=== PATIENT | male | born 1950 | race Caucasian/White ===

== ENCOUNTER 2018-10-04 09:00 | Inpatient (IN) | payer OTHER ==
[2018-09-24 12:05] VITALS: BMI 28.1
--- NOTE | 2018-10-04 07:53 | HP ---
Admitting History and Physical - Admission Chief Complaint: left knee osteoarthritis x years History of Present Illness: 68 year old male presents in regard to their left knee. Long-standing history of left knee osteoarthritis. Patient complains of pain, limited range of motion , difficulty ambulating, and difficulty with activities of daily living. Patient has failed conservative treatment options including PO medications, injections, activity modification, and exercise programs. At this point, patient would like to proceed with surgical intervention-left total knee arthroplasty, MAKOplasty. 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 - Smoking History Smoking history: Former smoker Have you smoked in the past 12 months: No Aproximately how many cigarettes per day: 20 If you are a former smoker, when did you quit?: 1978 - Alcohol/Substance Use Hx Alcohol Use: No Home Medications - Allergies Allergies/Adverse Reactions: Allergies Allergy/AdvReac Type Severity Reaction Status Date / Time No Known Allergies Allergy Verified 09/24/18 11:47 - Home Medications Home Medications: Ambulatory Orders Magnesium 200 mg PO DAILY 09/24/18 [place]-3 Fatty Acids/Fish Oil [Fish Oil 1,000 mg Capsule] 1 tab PO DAILY Pantoprazole Sodium [Protonix] 40 mg PO DAILY 09/24/18 Vitamin E 1,000 unit PO DAILY 09/24/18 Zinc 50 mg PO DAILY 09/24/18 Review of Systems - Review of Systems Musculoskeletal: reports: Crepitus (left knee), Decreased ROM (left knee), Joint Pain (left knee), Joint Swelling (left knee) Physical Examination Constitutional: Yes: Well Nourished, No Distress Eyes: Yes: Conjunctiva Clear HENT: Yes: Atraumatic, Normocephalic Neck: Yes: Supple Cardiovascular: Yes: Regular Rate and Rhythm Respiratory: Yes: Regular Gastrointestinal: Yes: Soft ...Rectal Exam: Yes: Deferred Musculoskeletal: Yes: Joint Stiffness (left knee), Joint Swelling (left knee) Assessment/Plan 68 year old male presents in regard to their left knee. Long-standing history of left knee osteoarthritis. Patient complains of pain, limited range of motion , difficulty ambulating, and difficulty with activities of daily living. Patient has failed conservative treatment options including PO medications, injections, activity modification, and exercise programs. At this point, patient would like to proceed with surgical intervention-left total knee arthroplasty, MAKOplasty. Pros, cons, risks, benefits, and alternatives of a left total knee arthroplasty, MAKOplasty were discussed with the patient at length. Patient confirms their understanding and consents to proceed with a left total knee arthroplasty, MAKOplasty.
[~2018-10-04 09:00] MED LIST: CEFAZOLIN 2 GM in DEXTROSE 5%-WATER - 50 ML IVPB ONE; CELECOXIB 200 MG CAPSULE PO ONE; GABAPENTIN 300 MG CAPSULE (FP) PO ONE; PANTOPRAZOLE 40 MG TABLET (FP) PO ONE; TRANEXAMIC ACID 1000 MG/10 ML VIAL IVPUSH ONE; oxyCODONE HCL 10 MG SUSTAINED ACTING TABLET PO ONE
[2018-10-04] MEDS ORDERED: SODIUM CHLORIDE 0.9% P/F 10 ML VIAL IJ ONE (12:07)
[2018-10-04] MEDS ORDERED: BUPIVACAINE LIPOSOME/PF (EXPAREL) 266 MG/20 ML VIAL ONE (12:07)
[2018-10-04] MEDS ORDERED: MIDAZOLAM HCL 2 MG/2 ML SINGLE DOSE VIAL ONE ×3 (12:07→15:52)
[2018-10-04] MEDS ORDERED: TRANEXAMIC ACID 1000 MG/10 ML VIAL ONE ×2 (13:26→13:54)
[2018-10-04] MEDS ORDERED: VANCOMYCIN 1,000 MG VIAL (RESTRICTED TO ID ONLY) ONE (13:26)
[2018-10-04] MEDS ORDERED: ceFAZolin SODIUM 1 GM VIAL ONE ×2 (13:26→13:53)
[2018-10-04] MEDS ORDERED: BUPIVACAINE HCL/PF 0.5% (5MG/ML) 10 ML VIAL ONE (13:49)
[2018-10-04] MEDS ORDERED: SUCCINYLCHOLINE CHLORIDE 200 MG/10 ML VIAL ONE (13:50)
[2018-10-04] MEDS ORDERED: ePHEDrine SULFATE 50 MG/1 ML AMPULE ONE (13:50)
[2018-10-04] MEDS ORDERED: ONDANSETRON 4 MG/2 ML VIAL IVPUSH PRN ×2 (15:46→18:12)
[2018-10-04] MEDS ORDERED: oxyCODONE HCL 5 MG TABLET PO PRN ×2 (15:46→22:45)
[2018-10-04] MEDS ORDERED: LACTATED RINGERS SOLUTION 1,000 ML IV SCH ×2 (16:00→18:15)
[2018-10-04] MEDS ORDERED: VANCOMYCIN 1,000 MG VIAL (RESTRICTED TO ID ONLY) IVPB ONE (16:44)
[2018-10-04] MEDS ORDERED: TRANEXAMIC ACID 1000 MG/10 ML VIAL IVPB ONE (16:46)
[2018-10-04] MEDS ORDERED: MAGNESIUM HYDROX 2400MG/30ML ORAL SUSPENSION 30 ML CUP PO PRN (18:12)
[2018-10-04] MEDS ORDERED: MAG HYDROX/AL HYDROX/SIMETH 30 ML UNIT-DOSE CUP PO PRN (18:12)
[2018-10-04] MEDS ORDERED: ACETAMINOPHEN 1000 MG/100 ML VIAL (NON FORMULARY) IVPB ONE (18:15)
[2018-10-04] MEDS ORDERED: KETOROLAC TROMETHAMINE 30 MG/1 ML VIAL ONE (18:22)
[2018-10-04] MEDS ORDERED: traMADol HCL 50 MG TABLET ONE (18:23)
[2018-10-04] MEDS ORDERED: ACETAMINOPHEN INJECTION 100 ML IVPB ONE (18:23)
[2018-10-04] MEDS: KETOROLAC TROMETHAMINE 30 MG/1 ML VIAL IVPUSH SCH ×2 (18:25→23:22)
[2018-10-04] MEDS: traMADol HCL 50 MG TABLET PO SCH ×2 (18:25→23:23)
[2018-10-04] MEDS ORDERED: DEXAMETHASONE SOD PHOSPHATE/PF 10 MG/ML SDV ONE (18:37)
--- NOTE | 2018-10-04 19:37 | OP ---
Operative Note - Note: Operative Date: 10/04/18 Pre-Operative Diagnosis: left knee OA Operation: left ANJU TKA Post-Operative Diagnosis: Same as Pre-op Surgeon: Mynor Garcia Food And Beverage Checker: Crista Hernandez Anesthesia: Spinal Estimated Blood Loss (mls): 200
--- NOTE | 2018-10-04 20:08 | SPEC ---
DATE OF OPERATION: 10/04/2018 PREOPERATIVE DIAGNOSIS: Left knee osteoarthritis. POSTOPERATIVE DIAGNOSIS: Left knee osteoarthritis. PROCEDURE: Left total knee replacement with MAKOplasty robotic navigation. ATTENDING PHYSICIAN: Demi Estrada MD CLINICAL SCIENCES PROFESSOR: WALE Wong ANESTHESIA: Spinal plus sedation. ESTIMATED BLOOD LOSS: 200 mL COMPLICATIONS: None. DISPOSITION: The patient was transferred to the PACU in stable condition. IMPLANTS USED: Wade Triathlon size 6 femoral component, size 5 tibial component, 13-mm total stabilized polyethylene component, 35 mm patellar component. INDICATIONS: This is a 68-year-old male who presents to the office complaining of severe left knee pain. He was seen and examined by Dr. Estrada and diagnosed with severe left knee osteoarthritis. The patient had a history of right knee osteoarthritis and had right knee replacement 9 years ago that was doing well. He was initially treated conservatively with nonoperative treatments, but continued to have severe pain and ambulatory dysfunction. Therefore, he was indicated for a left total knee replacement. The risks, benefits, and alternatives to the procedure were explained to the patient in great detail and he elected to proceed with the surgery. DESCRIPTION OF PROCEDURE: On the day of surgery, the patient was taken to the operating room and placed on the OR table. Spinal anesthesia was administered by the anesthesiologist. The patient was then positioned supine on the table and all bony prominences were padded. The knee was then prepped and draped in the usual sterile fashion and intravenous antibiotics were given for infection prophylaxis. A surgical time-out was then performed with the team, and the patients identity, procedure, side, availability of implants, and the administration of antibiotics was confirmed. With the knee flexed, a midline incision was made and carried down through the subcutaneous fat to the underlying retinaculum. A medial parapatellar arthrotomy was performed. This was followed by a subperiosteal dissection of the tissue off the proximal, medial tibia. A portion of fat pad was removed from under the patellar tendon, and a small portion of fat was excised off the distal supracondylar femur. Electrocautery and an Aquamantys bipolar sealing device were used to achieve hemostasis. The knee was then flexed further and the anterior horn of the lateral meniscus was released from the midline. Next, the anterior and posterior cruciate ligaments were transected. Grade 4 changes were noted diffusely throughout the knee. Femoral and tibial checkpoints were then placed in the appropriate location using a mallet. Two parallel bicortical self-drilling pins were placed in the tibial diaphysis after making stab incisions and bluntly dissecting down to bone. Two pins were then placed in the distal supracondylar femur. The Pace4Life navigation arrays were then attached to both the femoral and tibial pins and the lower extremity was then registered to the robotic navigation device using various joint movements, as well as inputting several dozen reference points. The knee was then taken through a full range of motion with a corrective force applied. Alignment in varus/valgus as well as flexion/extension and soft tissue balance was measured in various positions. The navigation device showed a numerical and graphic representation of the soft tissue balance. The components were repositioned virtually using the software until optimal soft tissue balance was achieved on screen. Once this was accomplished, the final plan was saved and sent to the robot. Self-retaining retractors were then placed at the joint line for exposure and protection of the collateral ligaments. The robot was brought into the sterile field and registered with the navigation device. The robotic arm with attached oscillating saw blade was then used to perform femoral and tibial bone cuts as per the saved software plan. The femoral box cut was made using the appropriately sized manual cutting guide. The knee was then irrigated. Trial components were placed and the knee was taken through a full range of motion to assess soft tissue balance and alignment. The range of motion was found to be excellent and the soft tissue balance was optimal and according to plan. The knee was then put into extension and the patella everted. The synovium around the patella was circumscribed with electrocautery. A caliper was used to measure the patellar thickness and a saw was then used to resect the patella at the chondro-osseous junction. The cut surface was then sized and drilled for the appropriate patellar button, with care taken to medialize it. A trial patella was then placed and the knee was again taken through a full range of motion. The knee was found to have both good balance and good patellar tracking. All of the components were removed except the tibial base plate. The appropriate instrumentation was used to drill and punch the proximal tibia for the keel of the final component. All bony surfaces were then cleaned with pulsatile lavage and dried. Bone cement was then prepared on the back table, and final components were cemented in place in the usual fashion. Extruded cement was removed. The polyethylene trial was placed, the knee was put into extension, and axial pressure was applied for compression while the cement hardened. The patellar button was similarly cemented into place. Once the cement had hardened, the knee was taken through a full range of motion to assess stability, balance, and patellar tracking. This was found to be optimal and the trial polyethylene was exchanged for the appropriately sized real implant. The wound was then thoroughly irrigated with normal saline. A 3-minute dilute Betadine lavage was performed. The knee was again irrigated using a pulsatile lavage device. A periarticular injection was used to locally infiltrate the capsular tissues surrounding the implant and prosthesis. Then No. 1 Polysorb and 0 VLoc 180 barbed sutures were used to close the arthrotomy. Then No. 1 Polysorb and 2-0 VLoc 90 sutures were used in the subcutaneous tissues. Then 4-0 undyed Vicryl and Dermabond skin adhesive was used to close the stab incisions made for the navigation pins. The skin was closed using both 3-0 VLoc 90 suture in a running subcuticular fashion and Dermabond skin adhesive. Once this was completed a sterile Aquacel dressing and compressive Rubin-wrap was applied. The patient was then awakened and taken to the PACU in stable condition. DEMI ESTRADA M.D. [id number]
[2018-10-04] MEDS: CELECOXIB 200 MG CAPSULE PO SCH (21:39)
[2018-10-04] MEDS: SENNOSIDES/DOCUSATE COMBO (SENNA PLUS) TABLET (UD) PO SCH (21:40)
[2018-10-04] MEDS: ASCORBIC ACID 500 MG TABLET (FP) PO SCH (21:40)
[2018-10-04] MEDS: GABAPENTIN 300 MG CAPSULE (FP) PO SCH (21:40)
[2018-10-04] MEDS ORDERED: oxyCODONE HCL 5 MG TABLET PO ONE (23:00)
[2018-10-04] MEDS: oxyCODONE HCL 5 MG TABLET PO PRN (23:00)
[2018-10-04] MEDS ORDERED: diazePAM 5 MG TABLET PO ONE (23:00)
[2018-10-05] MEDS ORDERED: DEXAMETHASONE SOD PHOSPHATE 10 MG/1 ML VIAL IVPB ONE (00:01)
[2018-10-05] MEDS: CEFAZOLIN 2 GM/D5W 2 GM/50 ML ML IVPB SCH ×2 (01:12→09:40)
[2018-10-05] MEDS: oxyCODONE HCL 5 MG TABLET PO PRN ×5 (03:28→21:39)
[2018-10-05] MEDS: traMADol HCL 50 MG TABLET PO SCH ×4 (06:06→23:42)
[2018-10-05] MEDS: KETOROLAC TROMETHAMINE 30 MG/1 ML VIAL IVPUSH SCH ×2 (06:06→13:23)
[2018-10-05 07:40] LABS: HEMATOCRIT 42.2 % (35.4-49); HEMOGLOBIN 13.7 GM/dl (11.7-16.9); MCH 33.2 pg (25.7-33.7); MCHC 32.5 g/dl (32.0-35.9); MEAN CELL VOLUME 101.9 fl (80-96); MEAN PLT VOLUME 8.1 fl (7.5-11.1); PLATELET COUNT 138 K/MM3 (134-434); RBC 4.14 M/mm3 (4.00-5.60); RDW 13.1 % (11.9-15.9); WHITE BLOOD COUNT 5.6 K/mm3 (4.0-10.8)
[2018-10-05 07:43] LABS: CALCIUM 8.5 mg/dl (8.5-10); CREATININE 0.9 mg/dl (0.55-1.3); POTASSIUM 4.3 mmol/L (3.5-5.1)
--- NOTE | 2018-10-05 08:59 | PN ---
Progress Note (short form) - Note Progress Note: ANESTHESIA POSTOP 68 YO MALE POD#1 s/p TKA, spinal anesthesia, nerve block patient sitting in chair, appears comfortable, socially interacting with guests , pain mostly mid-thigh VSS, Afebrile Patient doing well. Encouraged active participation in PT and use of IS. No anesthetic complications
[2018-10-05] MEDS: GABAPENTIN 300 MG CAPSULE (FP) PO SCH ×2 (09:30→21:46)
[2018-10-05] MEDS: SENNOSIDES/DOCUSATE COMBO (SENNA PLUS) TABLET (UD) PO SCH ×2 (09:30→22:38)
[2018-10-05] MEDS: MULTIVITAMINS (DAILY MVI) TABLET (FP) PO SCH (09:30)
[2018-10-05] MEDS: ASPIRIN 325 MG TABLET PO SCH (09:30)
[2018-10-05] MEDS: CELECOXIB 200 MG CAPSULE PO SCH ×2 (09:30→21:46)
[2018-10-05] MEDS: ASCORBIC ACID 500 MG TABLET (FP) PO SCH ×2 (09:31→21:46)
[2018-10-05] MEDS: PANTOPRAZOLE 40 MG TABLET (FP) PO SCH (09:38)
[2018-10-05] MEDS ORDERED: PANTOPRAZOLE 40 MG TABLET (FP) PO SCH (10:00)
--- NOTE | 2018-10-06 01:03 | PN ---
Progress Note (short form) - Note Progress Note: Pt seen and examined. Doing well. AVSS Selected Entries 10/05/18 10/05/18 10/06/18 20:00 20:18 00:00 Temperature 97.9 F 98.8 F Pulse Rate 72 91 H Respiratory 18 18 Rate Blood Pressure 111/68 114/59 L O2 Sat by Pulse 96 95 Oximetry (%) Oxygen Delivery Room Air Room Air Method Laboratory Tests 10/05/18 10/05/18 07:14 07:14 WBC 5.6 Hgb 13.7 Hct 42.2 Plt Count 138 Sodium 135 L Potassium 4.3 Chloride 104 Carbon Dioxide 24 Anion Gap 7 L BUN 17 Creatinine 0.9 Est GFR (CKD-EPI)AfAm 101.36 Est GFR (CKD-EPI)NonAf 87.45 Random Glucose 150 H Calcium 8.5 Gen: NAD LLE: c/d/i, NVID A/P 68yo male POD#1 s/p L TKA PT/OOB D/C home in AM
[2018-10-06] MEDS: oxyCODONE HCL 5 MG TABLET PO PRN (01:35)
--- NOTE | 2018-10-06 01:43 | DS ---
Physical Examination Vital Signs: Vital Signs Temperature 98.8 F 10/06/18 00:00 Pulse Rate 91 H 10/06/18 00:00 Respiratory Rate 18 10/06/18 00:00 Blood Pressure 114/59 L 10/06/18 00:00 O2 Sat by Pulse Oximetry (%) 95 10/06/18 00:00 Labs: CBC, BMP 10/05/18 07:14 10/05/18 07:14 Discharge Summary Reason For Visit: LEFT KNEE OSTEOARTHRITIS Current Active Problems Primary osteoarthritis of left knee (Acute) Procedures: Principal: tka Hospital Course: Admitted for elective surgery. Procedure performed without complications. Pt received postoperative antibiotic prophylaxis and DVT ppx. Ambulated with physical therapy. Stable for discharge home with outpatient followup. Condition: Stable - Instructions Diet, Activity, Other Instructions: Dr. Garcia - Knee Replacement Instructions Keep the Aquacel dressing on until removed by Dr. Garcia in 10-14 days - it is antibacterial and waterproof and you can shower with it on. Call the office for a follow-up appointment with Dr. Garcia in 10-14 days. Take one Aspirin 325mg daily for 6 weeks to prevent blood clots in your legs. Take one Pantoprazole 40mg daily for 6 weeks to protect against heartburn and ulcers. Take Cephalexin (antibiotic) 3x/day for 10 days to help prevent skin infection. Take Celebrex 200mg twice daily for 30 days to reduce swelling and inflammation. Take a multivitamin, stool softener, and extra Vitamin C supplement daily. For pain: *Mild pain (1-3/10): Take 1 Tramadol tablet every 3 hours as needed. Moderate/Severe pain (4-10/10): Take 1 Tramadol tablet and 1 Percocet tablet every 3 hours as needed. Activity: You can put as much weight on the operative leg as you want. Right after you get home, there will be a physical therapist coming to your house to help you walk around and bend/straighten your knee. After your follow-up appointment, you will be sent for more intensive outpatient physical therapy which will include machines and equipment that the home therapist cannot bring to your house. Always use a walker or cane for balance and to prevent falls. Expect to see redness/warmth/swelling/bruising from your thigh all the way down to your toes. Wear the compression stocking on the operative side during the day to minimize how much swelling there is in your foot/ankle. Don't wear the stocking at night. You don't have to wear a stocking on the other side. Disposition: [facility]/HOME HEALTH CARE - Home Medications Comprehensive Discharge Medication List: Ambulatory Orders Magnesium 200 mg PO DAILY 09/24/18 [place]-3 Fatty Acids/Fish Oil [Fish Oil 1,000 mg Capsule] 1 tab PO DAILY Pantoprazole Sodium [Protonix] 40 mg PO DAILY 09/24/18 Vitamin E 1,000 unit PO DAILY 09/24/18 Zinc 50 mg PO DAILY 09/24/18 Ascorbic Acid [Vitamin C -] 500 mg PO BID tablet 10/06/18 Aspirin [ASA -] 325 mg PO DAILY@0800 tablet 10/06/18 Celecoxib [CeleBREX -] 200 mg PO BID #60 capsule 10/06/18 Cephalexin Monohydrate [Keflex -] 500 mg PO TID #30 capsule 10/06/18 Multivitamins [Multivit ([facility] Formulary)] 1 tab PO DAILY tab 10/06/18 Oxycodone HCl/Acetaminophen [Oxycodone-Acetaminophen 10-325] 1 tab PO Q3H PRN # 60 tablet MDD 8 10/06/18 Pantoprazole Sodium [Protonix -] 40 mg PO DAILY #40 tablet.ec 10/06/18 Sennosides/Docusate Sodium [Pericolace -] 1 tablet PO BID tablet 10/06/18 traMADol HCL [Ultram -] 50 mg PO Q4H PRN #60 tablet MDD 6 10/06/18
[2018-10-06] MEDS: traMADol HCL 50 MG TABLET PO SCH ×2 (05:34→11:32)
[2018-10-06 07:08] VITALS: BP 98/66; PULSE 80; TEMP 98.4
[2018-10-06 09:55] LABS: HEMATOCRIT 35.3 % (35.4-49); HEMOGLOBIN 11.9 GM/dL (11.7-16.9); MCH 34.5 pg (25.7-33.7); MCHC 33.7 g/dl (32.0-35.9); MEAN CELL VOLUME 102.6 fl (80-96); MEAN PLT VOLUME 8.7 fl (7.5-11.1); PLATELET COUNT 107 K/MM3 (134-434); RBC 3.44 M/mm3 (4.00-5.60); RDW 13.7 % (11.9-15.9)
[2018-10-06] MEDS: ASPIRIN 325 MG TABLET PO SCH (10:00)
[2018-10-06] MEDS: GABAPENTIN 300 MG CAPSULE (FP) PO SCH (10:00)
[2018-10-06] MEDS: CELECOXIB 200 MG CAPSULE PO SCH (10:00)
[2018-10-06] MEDS: PANTOPRAZOLE 40 MG TABLET (FP) PO SCH (10:00)
[2018-10-06] MEDS: ASCORBIC ACID 500 MG TABLET (FP) PO SCH (10:00)
[2018-10-06] MEDS: MULTIVITAMINS (DAILY MVI) TABLET (FP) PO SCH (10:00)
[2018-10-06] MEDS: SENNOSIDES/DOCUSATE COMBO (SENNA PLUS) TABLET (UD) PO SCH (10:00)
--- NOTE | 2018-10-08 17:49 | PATH ---
Surgical Pathology Report Patient Name: CHELSEA VALLECILLO Med. Rec. #: [id number] /Age/Gender: 1950 (Age: 68) / M Account: [id number] Location: [facility] MED-SURG Taken: 10/04/2018 Received: 10/04/2018 Reported: 10/08/2018 Physicians: Mynor Garcia M.D. Specimen(s) Received LEFT KNEE BONE Clinical History Left knee osteoarthritis Final Diagnosis BONE, KNEE, LEFT, TOTAL KNEE REPLACEMENT: BONE WITH DEGENERATIVE JOINT DISEASE. Electronically Signed Jinny Morrison M.D. Gross Description Received in formalin labeled "left knee bone," is an 11.5 x 9.5 x 1.7 cm aggregate of multiple irregular portions of bone and soft tissue. The tibial plateau measures 8.0 x 5.4 x 1.6 cm. There are multiple areas of eburnation present, measuring up to 4.0 cm in greatest dimension. The underlying trabecular bone is yellow and hard. Repeater Chief sections are submitted in one cassette, following decalcification. 10/05/2018 [facility]10/05/2018
== END 2018-10-06 12:50 | disposition home health service (06) | DRG 470 ==
LOC: FM/S 09:33
PROVIDERS: ADMIT Student in an Organized Health Care Education/Training Program; ATTEND Student in an Organized Health Care Education/Training Program
PROC: 8E0X0CZ Robotic Assisted Procedure of Upper Extremity, Open Approach (ICD-10-PCS; 2018-10-04)
PROC: 0SRD0J9 Replacement of Left Knee Joint with Synthetic Substitute, Cemented, Open Approach (ICD-10-PCS; principal; 2018-10-04 14:35)
DX: M17.12 Unilateral primary osteoarthritis, left knee (principal); K21.9 Gastro-esophageal reflux disease without esophagitis; G62.9 Polyneuropathy, unspecified; Z87.891 Personal history of nicotine dependence
CPT/HCPCS: 36415; 73560-TC-LT-FY; 80048; 85027; 88304-TC; 88311-TC; 94760; 97116-GP; 97163-GP; J0131; J1100

== ENCOUNTER 2018-10-06 17:47 | Inpatient (IN) | payer OTHER ==
[2018-10-06] MEDS ORDERED: SODIUM CHLORIDE 1,000 ML IV STA (18:30)
--- NOTE | 2018-10-06 18:54 | PDOC ---
Documentation entered by Shun Mtz SCRIBE, acting as scribe for Pino Mckeon MD. Pino Mckeon MD: This documentation has been prepared by the Smith green Daniel, SCRIBE, under my direction and personally reviewed by me in its entirety. I confirm that the documentation accurately reflects all work, treatment, procedures, and medical decision making performed by me. History of Present Illness - General Chief Complaint: Revisit,Wound Recheck Stated Complaint: BLEEDING FROM TKR WOUND History Source: Patient Exam Limitations: No Limitations - History of Present Illness Initial Comments: 10/06/18 18:39 The patient is a 68 year old male with a past medical history of left total knee replacement here today for evaluation of left knee pain. The patient reports that he had a left total knee replacement on 10/04/18. He reports that he was on his way home from the hospital today, when he was getting out a cab his left knee buckled and he began to fall. He states that he was able to hold himself up and prevent falling. However, the left knee wound started bleeding actively after this event. He immediately return to the emergency department. Patient denies headache, lightheadedness. Denies fever, chills. Denies chest pain, shortness of breath. Denies nausea, vomiting, diarrhea, abdominal pain. Allergies: NKA Orthopedist: Mynor Garcia Past History - Past Medical History Allergies/Adverse Reactions: Allergies Allergy/AdvReac Type Severity Reaction Status Date / Time No Known Allergies Allergy Verified 09/24/18 11:47 Home Medications: Ambulatory Orders Magnesium 200 mg PO DAILY 09/24/18 [place]-3 Fatty Acids/Fish Oil [Fish Oil 1,000 mg Capsule] 1 tab PO DAILY Vitamin E 1,000 unit PO DAILY 09/24/18 Zinc 50 mg PO DAILY 09/24/18 Ascorbic Acid [Vitamin C -] 500 mg PO BID tablet 10/06/18 Aspirin [ASA -] 325 mg PO DAILY@0800 tablet 10/06/18 Celecoxib [CeleBREX -] 200 mg PO BID #60 capsule 10/06/18 Cephalexin Monohydrate [Keflex -] 500 mg PO TID #30 capsule 10/06/18 Multivitamins [Multivit ([facility] Formulary)] 1 tab PO DAILY tab 10/06/18 Oxycodone HCl/Acetaminophen [Oxycodone-Acetaminophen 10-325] 1 tab PO Q3H PRN # 60 tablet MDD 8 10/06/18 Pantoprazole Sodium [Protonix -] 40 mg PO DAILY #40 tablet.ec 10/06/18 Sennosides/Docusate Sodium [Pericolace -] 1 tablet PO BID tablet 10/06/18 traMADol HCL [Ultram -] 50 mg PO Q4H PRN #60 tablet MDD 6 10/06/18 Anemia: No Asthma: No Cancer: Yes (PROSTATE) Cardiac Disorders: No CVA: No COPD: No CHF: No Dementia: No Diabetes: No GI Disorders: Yes (REFLUX, GASTRIC ULCER,PUD) Disorders: No HTN: No Hypercholesterolemia: Yes (DIET CONTROLLED) Liver Disease: No Seizures: No Thyroid Disease: No - Surgical History Abdominal Surgery: Yes (PARTIAL GASTRECTOMY) Appendectomy: No Cardiac Surgery: No Cholecystectomy: No Lung Surgery: No Neurologic Surgery: No Orthopedic Surgery: Yes (RIGHT TOTAL KNEE REPLACEMENT- 2008) - Suicide/Smoking/Psychosocial Hx Smoking Status: No Smoking History: Former smoker Have you smoked in the past 12 months: No Number of Cigarettes Smoked Daily: 20 If you are a former smoker, when did you quit?: 1978 Hx Alcohol Use: No Drug/Substance Use Hx: No Substance Use Type: None Hx Substance Use Treatment: No Review of Systems - Review of Systems Able to Perform ROS?: Yes Comments:: 10/06/18 18:40 CONSTITUTIONAL: Absent: Fever, Chills, Diaphoresis, Generalized Weakness, Malaise, Loss of Appetite HEENT: Absent: Rhinorrhea, Nasal Congestion, Throat Pain, Throat Swelling, Difficulty Swallowing, Mouth Swelling, Ear Pain, Eye Pain, Visual Changes CARDIOVASCULAR: Absent: Chest Pain, Syncope, Palpitations, Irregular Heart Rate, Lightheadedness , Peripheral Edema RESPIRATORY: Absent: Cough, Shortness of Breath, SOB with Exertion, Orthopnea, Wheezing, Stridor, Hemoptysis GASTROINTESTINAL: Absent: Abdominal pain, Abdominal Distension, Nausea, Vomiting, Diarrhea, Constipation, Melena, Hematochezia GENITOURINARY: Absent: Dysuria, Frequency, Urgency, Hesitancy, Flank Pain, Genital Pain MUSCULOSKELETAL: +left knee pain Absent: Back pain, Neck Pain SKIN: Absent: Rash, Itching, Pallor HEMEATOLOGIC/IMMUNOLOGIC: Absent: Easy Bleeding, Easy Bruising, Lymphadenopathy, Frequent infections ENDOCRINE: Absent: Unexplained Weight Gain, Unexplained Weight Loss, Heat Intolerance, Cold Intolerance NEUROLOGIC: Absent: Headache, Focal Weakness, Paresthesias, Vertigo, Lightheadedness, Unsteady Gait, Seizure, Mental Status Changes, Incontinence PSYCHIATRIC: Absent: Anxiety, Depression *Physical Exam - Vital Signs Last Vital Signs Temp Pulse Resp BP Pulse Ox 98.3 F 84 18 108/71 100 10/06/18 17:50 10/06/18 17:50 10/06/18 17:50 10/06/18 17:50 10/06/18 17:50 - Physical Exam Comments: 10/06/18 18:43 GENERAL: The patient is awake, alert, and fully oriented, in no acute distress. HEAD: Normal with no signs of trauma. EYES: Pupils equal, round and reactive to light, extraocular movements intact, sclera anicteric, conjunctiva clear. EXTREMITIES: The left knee dressing remains in place from the surgery, however, the dressing is bulging out from contained blood under the dressing. The dressing was removed revealing complete dehiscence of the left anterior surgical wound from the TKR. Bleeding was controlled with gauze dressings and combine dressings and an Rubin bandage was applied. NEUROLOGICAL: Normal speech, normal gait. PSYCH: Normal mood, normal affect. SKIN: Warm, Dry, normal turgor, no rashes or lesions noted. ED Treatment Course - LABORATORY CBC & Chemistry Diagram: 10/06/18 18:40 10/06/18 18:40 - RADIOLOGY Radiology Studies Ordered: Category Date Time Status KNEE 2 POS-LEFT [RAD] Stat Radiology 10/06/18 18:30 Ordered Medical Decision Making - Medical Decision Making 10/06/18 18:31 Dr. Mynor kaplan awaiting call back. 10/06/18 18:41 Dr. Garcia's PA, their team recommends antibiotics and admission to [facility]. 10/06/18 19:11 Patient is a 68-year-old man with a history of prior right total knee replacement many years ago. He had his left knee replacement done in the hospital here a couple of days ago. He was on his way home from the hospital today when he had a buckling of his left knee while getting out of the taxi. He did not fall or injure himself, however, the left knee started bleeding. He immediately return to the emergency department. On examination, there is complete wound dehiscence of the anterior left knee wound. There is a moderate amount of bleeding. Bleeding was easily controlled with gauze, combine dressings, and an elastic bandage. Dr. Domingo Garcia, his orthopedic surgeon, was immediately contacted. His PA responded and advised admission to the hospital with prophylactic antibiotics. They requested admission on the hospitalist service and they will act as supply chain consultant's. They are planning to take the patient back to the OR for a washout and closure. Hospitalist service has been paged. *DC/Admit/Observation/Transfer Diagnosis at time of Disposition: Wound dehiscence - Discharge Dispostion Condition at time of disposition: Stable Decision to Admit order: Yes - Referrals Referrals: Mynor Garcia MD [Primary Care Provider] - - Patient Instructions - Post Discharge Activity
[2018-10-06 19:16] LABS: ALBUMIN 3.3 g/dl (3.4-5.0); BILIRUBIN,TOTAL 1.2 mg/dl (0.2-1); CALCIUM 8.2 mg/dl (8.5-10); CREATININE 1.1 mg/dl (0.55-1.3); POTASSIUM 4.9 mmol/L (3.5-5.1); TOT PROT 6.1 g/dl (6.4-8.2)
[2018-10-06 19:24] LABS: ACTIVATED PTT 25.4 SECONDS (25.2-36.5)
[2018-10-06 19:28] LABS: INR 1.15 (0.82-1.09); PROTHROMBIN TIME (PATIENT) 12.6 SEC (10.2-13.0)
[2018-10-06] MEDS ORDERED: ceFAZolin 2 GRAM PREMIX BAG IVPB STA (19:29)
[2018-10-06] MEDS ORDERED: ceFAZolin SODIUM 1 GM VIAL ONE (19:33)
[2018-10-06] MEDS ORDERED: morphine CARPU-JECT 2 MG/1 ML DISP.SYRIN IVPUSH ONE (19:42)
[2018-10-06] MEDS ORDERED: morphine SULFATE 4 MG/ML VIAL ONE (19:52)
[2018-10-06 20:40] LABS: BASO % 0.1 % (0-2.0); EOS % 0.1 % (0-4.5); HEMATOCRIT 36.7 % (35.4-49); HEMOGLOBIN 12.3 GM/dL (11.7-16.9); LYMPH % 8.5 % (8-40); MCH 34.3 pg (25.7-33.7); MCHC 33.4 g/dl (32.0-35.9); MEAN CELL VOLUME 102.5 fl (80-96); MEAN PLT VOLUME 9.1 fl (7.5-11.1); MONO % 10.8 % (3.8-10.2); NEUT % 80.5 % (42.8-82.8); PLATELET COUNT 114 K/MM3 (134-434); RBC 3.58 M/mm3 (4.00-5.60); RDW 14.2 % (11.9-15.9); WHITE BLOOD COUNT 8.5 K/mm3 (4.0-10.0)
[2018-10-06 21:02] VITALS: BMI 27.9
--- NOTE | 2018-10-06 21:30 | HP ---
CHIEF COMPLAINT: left knee wound dehiscence PCP: Orthopedist: Mynor Garcia HISTORY OF PRESENT ILLNESS: 68 year old male s/p left TKR 10/06, d/c from hospital and on his way home from the hospital when he was getting out a cab his left knee buckled and he began to fall. Subsequently went to ER. Pt's surgeon- Dr. Garcia was contacted. ER course was notable for: (1) knee xray (2) cefazolin (3) Recent Travel:no PAST MEDICAL HISTORY: left total knee replacement one day ago PAST SURGICAL HISTORY: left TKR - 10/04, right TKR Social History: Smoking: former smoker Alcohol: no Drugs: no Family History: none Allergies No Known Allergies Allergy (Verified 09/24/18 11:47) HOME MEDICATIONS: Home Medications Medication Instructions Recorded Magnesium 200 mg PO DAILY 09/24/18 [place]-3 Fatty Acids/Fish Oil [Fish 1 tab PO DAILY 09/24/18 Oil 1,000 mg Capsule] Vitamin E 1,000 unit PO DAILY 09/24/18 Zinc 50 mg PO DAILY 09/24/18 Ascorbic Acid [Vitamin C -] 500 mg PO BID tablet 10/06/18 Aspirin [ASA -] 325 mg PO DAILY@0800 tablet 10/06/18 Celecoxib [CeleBREX -] 200 mg PO BID #60 capsule 10/06/18 Cephalexin Monohydrate [Keflex -] 500 mg PO TID #30 capsule 10/06/18 Multivitamins [Multivit ([facility] 1 tab PO DAILY tab 10/06/18 Formulary)] Oxycodone HCl/Acetaminophen 1 tab PO Q3H PRN #60 tablet MDD 8 10/06/18 [Oxycodone-Acetaminophen 10-325] Pantoprazole Sodium [Protonix -] 40 mg PO DAILY #40 tablet.ec 10/06/18 Sennosides/Docusate Sodium 1 tablet PO BID tablet 10/06/18 [Pericolace -] traMADol HCL [Ultram -] 50 mg PO Q4H PRN #60 tablet MDD 6 10/06/18 REVIEW OF SYSTEMS CONSTITUTIONAL: Absent: fever, chills, diaphoresis, generalized weakness, malaise, loss of appetite, weight change HEENT: Absent: rhinorrhea, nasal congestion, throat pain, throat swelling, difficulty swallowing, mouth swelling, ear pain, eye pain, visual changes CARDIOVASCULAR: Absent: chest pain, syncope, palpitations, irregular heart rate, lightheadedness , peripheral edema RESPIRATORY: Absent: cough, shortness of breath, dyspnea with exertion, orthopnea, wheezing, stridor, hemoptysis GASTROINTESTINAL: Absent: abdominal pain, abdominal distension, nausea, vomiting, diarrhea, constipation, melena, hematochezia GENITOURINARY: Absent: dysuria, frequency, urgency, hesitancy, hematuria, flank pain, genital pain MUSCULOSKELETAL: Absent: back pain, neck pain present- myalgia, arthralgia ,joint swelling, SKIN: Absent: rash, itching, pallor HEMATOLOGIC/IMMUNOLOGIC: Absent: easy bleeding, easy bruising, lymphadenopathy, frequent infections ENDOCRINE: Absent: unexplained weight gain, unexplained weight loss, heat intolerance, cold intolerance NEUROLOGIC: Absent: headache, focal weakness or paresthesias, dizziness, unsteady gait, seizure, mental status changes, bladder or bowel incontinence PSYCHIATRIC: Absent: anxiety, depression, suicidal or homicidal ideation, hallucinations. PHYSICAL EXAMINATION Vital Signs - 24 hr 10/06/18 10/06/18 17:50 20:42 Temperature 98.3 F 99.0 F Pulse Rate 84 93 H Respiratory 18 18 Rate Blood Pressure 108/71 112/70 O2 Sat by Pulse 100 97 Oximetry (%) GENERAL: Awake, alert, and fully oriented, in no acute distress. HEAD: Normal with no signs of trauma. EYES: Pupils equal, round and reactive to light, extraocular movements intact, sclera anicteric, conjunctiva clear. No lid lag. EARS, NOSE, THROAT: Ears normal, nares patent, oropharynx clear without exudates. Moist mucous membranes. NECK: Normal range of motion, supple without lymphadenopathy, JVD, or masses. LUNGS: Breath sounds equal, clear to auscultation bilaterally. No wheezes, and no crackles. No accessory muscle use. HEART: Regular rate and rhythm, normal S1 and S2 without murmur, rub or gallop. ABDOMEN: Soft, nontender, not distended, normoactive bowel sounds, no guarding, no rebound, no masses. MUSCULOSKELETAL: Normal range of motion at all joints. No bony deformities or tenderness. No CVA tenderness. UPPER EXTREMITIES: 2+ pulses, warm, well-perfused. No cyanosis. No clubbing. No peripheral edema. LOWER EXTREMITIES: right knee scar, left knee wound dehiscence, s/p TKR, in bandage NEUROLOGICAL: Cranial nerves II-XII intact. Normal speech. PSYCHIATRIC: Cooperative. Good eye contact. Appropriate mood and affect. SKIN: Warm, dry, normal turgor, no rashes or lesions noted, normal capillary refill. Laboratory Results - last 24 hr 10/06/18 10/06/18 10/06/18 18:40 18:40 18:40 WBC 8.5 RBC 3.58 L Hgb 12.3 Hct 36.7 MCV 102.5 H MCH 34.3 H MCHC 33.4 RDW 14.2 Plt Count 114 L MPV 9.1 Absolute Neuts (auto) 6.9 Neutrophils % 80.5 Lymphocytes % 8.5 D Monocytes % 10.8 H Eosinophils % 0.1 Basophils % 0.1 Nucleated RBC % 0 PT with INR 12.6 INR 1.15 PTT (Actin FS) 25.4 Sodium 137 Potassium 4.9 Chloride 104 Carbon Dioxide 25 Anion Gap 8 BUN 25 H Creatinine 1.1 Est GFR (CKD-EPI)AfAm 79.52 Est GFR (CKD-EPI)NonAf 68.61 Random Glucose 128 H Calcium 8.2 L Total Bilirubin 1.2 H AST 37 ALT 15 Alkaline Phosphatase 79 Total Protein 6.1 L Albumin 3.3 L Blood Type Antibody Screen 10/06/18 18:40 WBC RBC Hgb Hct MCV MCH MCHC RDW Plt Count MPV Absolute Neuts (auto) Neutrophils % Lymphocytes % Monocytes % Eosinophils % Basophils % Nucleated RBC % PT with INR INR PTT (Actin FS) Sodium Potassium Chloride Carbon Dioxide Anion Gap BUN Creatinine Est GFR (CKD-EPI)AfAm Est GFR (CKD-EPI)NonAf Random Glucose Calcium Total Bilirubin AST ALT Alkaline Phosphatase Total Protein Albumin Blood Type O POSITIVE Antibody Screen Negative imaging reviewed ASSESSMENT/PLAN: #68yo man w/ left TKR 10/04, post op day 2, s/p left knee wound dehiscence after traumatic fall. No evidence of of injuries on physical exam. Dr. Mynor Garcia contacted and aware. -admit tot med/surg -bed rest -fall precautions -morphine 30mg po sr with 2mg IVP for breakthrough -wound care -nursing -frequent dressing changes -diet for now -ortho consult- Dr. Garcia -cefazolin 1g IV q8hrs for prophylaxis -heparin sc for dvt ppx- moderate to high risk for dvt- s/p orthopedic surgery and bedbound #GERD -protonix Visit type - Emergency Visit Emergency Visit: Yes ED Registration Date: 10/06/18 Care time: The patient presented to the Emergency Department on the above date and was hospitalized for further evaluation of their emergent condition. - New Patient This patient is new to me today: Yes Date on this admission: 10/06/18 - Critical Care Critical Care patient: No
[2018-10-06] MEDS: morphine CARPU-JECT 2 MG/1 ML DISP.SYRIN IVPUSH PRN (23:55)
[2018-10-06] MEDS: morphine SO4 SUSTAINED ACTING 30 MG TABLET.SA PO SCH (23:56)
[2018-10-06] MEDS: HEPARIN NA (PORCINE) 5,000 UNITS/ML 1ML VIAL SQ SCH (23:57)
[2018-10-07] MEDS: CEFAZOLIN 1 GM/D5W 1 GM/50 ML BAG IVPB SCH ×3 (02:20→17:14)
[2018-10-07 09:15] LABS: CALCIUM 7.9 mg/dl (8.5-10); CREATININE 0.9 mg/dl (0.55-1.3); POTASSIUM 4.2 mmol/L (3.5-5.1)
[2018-10-07] MEDS ORDERED: PANTOPRAZOLE 40 MG TABLET (FP) PO SCH (10:00)
[2018-10-07] MEDS ORDERED: MULTIVITAMINS (DAILY MVI) TABLET (FP) PO SCH (10:00)
[2018-10-07 10:17] LABS: HEMATOCRIT 33.6 % (35.4-49); HEMOGLOBIN 11.3 GM/dL (11.7-16.9); MCH 34.2 pg (25.7-33.7); MCHC 33.5 g/dl (32.0-35.9); PLATELET COUNT 112 K/MM3 (134-434); RDW 13.8 % (11.9-15.9); WHITE BLOOD COUNT 6.7 K/mm3 (4.0-10.0)
[2018-10-07] MEDS: morphine SO4 SUSTAINED ACTING 30 MG TABLET.SA PO SCH ×2 (10:42→21:39)
--- NOTE | 2018-10-07 10:42 | PN ---
Physical Exam: SUBJECTIVE: Patient seen and examined, pt s/o pain in left leg, old bloody drainage noted from dressing OBJECTIVE: Vital Signs Period Temp Pulse Resp BP Sys/Early Pulse Ox Last 24 Hr 98.3 F-99.3 F 84-93 18-18 102-112/61-71 97-100 GENERAL: The patient is awake, alert, and fully oriented, in no acute distress. HEAD: Normal with no signs of trauma. EYES: PERRL, extraocular movements intact, sclera anicteric, conjunctiva clear. No ptosis. ENT: Ears normal, nares patent, oropharynx clear without exudates, moist mucous membranes. NECK: Trachea midline, full range of motion, supple. LUNGS: Breath sounds equal, clear to auscultation bilaterally, no wheezes, no crackles, no accessory muscle use. HEART: Regular rate and rhythm, S1, S2 without murmur, rub or gallop. ABDOMEN: Soft, nontender, nondistended, normoactive bowel sounds, no guarding, no rebound, no hepatosplenomegaly, no masses. EXTREMITIES: 2+ pulses, warm, well-perfused, no edema. NEUROLOGICAL: Cranial nerves II through XII grossly intact. Normal speech, gait not observed. PSYCH: Normal mood, normal affect. SKIN: Warm, dry, normal turgor, no rashes or lesions noted Laboratory Results - last 24 hr 10/06/18 10/06/18 10/06/18 18:40 18:40 18:40 WBC 8.5 RBC 3.58 L Hgb 12.3 Hct 36.7 MCV 102.5 H MCH 34.3 H MCHC 33.4 RDW 14.2 Plt Count 114 L MPV 9.1 Absolute Neuts (auto) 6.9 Neutrophils % 80.5 Lymphocytes % 8.5 D Monocytes % 10.8 H Eosinophils % 0.1 Basophils % 0.1 Nucleated RBC % 0 PT with INR 12.6 INR 1.15 PTT (Actin FS) 25.4 Sodium 137 Potassium 4.9 Chloride 104 Carbon Dioxide 25 Anion Gap 8 BUN 25 H Creatinine 1.1 Est GFR (CKD-EPI)AfAm 79.52 Est GFR (CKD-EPI)NonAf 68.61 Random Glucose 128 H Calcium 8.2 L Total Bilirubin 1.2 H AST 37 ALT 15 Alkaline Phosphatase 79 Total Protein 6.1 L Albumin 3.3 L Blood Type Antibody Screen 10/06/18 10/07/18 10/07/18 18:40 06:00 06:00 WBC 6.7 RBC 3.30 L Hgb 11.3 L Hct 33.6 L MCV 102.0 H MCH 34.2 H MCHC 33.5 RDW 13.8 Plt Count 112 L MPV 9.0 Absolute Neuts (auto) Neutrophils % Lymphocytes % Monocytes % Eosinophils % Basophils % Nucleated RBC % PT with INR INR PTT (Actin FS) Sodium 135 L Potassium 4.2 Chloride 102 Carbon Dioxide 23 Anion Gap 10 BUN 17 Creatinine 0.9 Est GFR (CKD-EPI)AfAm 101.36 Est GFR (CKD-EPI)NonAf 87.45 Random Glucose 77 Calcium 7.9 L Total Bilirubin AST ALT Alkaline Phosphatase Total Protein Albumin Blood Type O POSITIVE Antibody Screen Negative Active Medications Generic Name Dose Route Start Last Admin Trade Name Freq PRN Reason Stop Dose Admin Ascorbic Acid 500 mg 10/07/18 10:00 Vitamin C - PO BID [facility] Heparin Sodium (Porcine) 5,000 unit 10/06/18 22:00 10/06/18 23:57 Heparin - SQ Not Given BID FELECIA Cefazolin Sodium 1 gm in 50 mls @ 100 mls/hr 10/07/18 02:00 10/07/18 02:20 Ancef 1 Gm Premixed Ivpb - IVPB 100 mls/hr Q8H-IV FELECIA Administration Morphine Sulfate 2 mg 10/06/18 21:35 10/06/18 23:55 Morphine Injection - IVPUSH 2 mg Q4H PRN Administration PAIN LEVEL 6-10 Morphine Sulfate 30 mg 10/06/18 22:45 10/06/18 23:56 Ms Contin - PO 30 mg BID FELECIA Administration Multivitamins/Minerals/Vitamin C 1 tab 10/07/18 10:00 Tab-A-Vit - PO DAILY FELECIA Pantoprazole Sodium 40 mg 10/07/18 10:00 Protonix - PO DAILY [facility] ASSESSMENT/PLAN: Dominick Rodriguez is a 68yo man w/ left TKR 10/04, post op day 2, s/p left knee wound dehiscence after traumatic fall. #Left knee wound dehiscence 2/2 tramautic fall -bed rest -fall precautions -pain mgt morphine 30mg po sr , 2mg IVP for breakthrough -wound care -frequent dressing changes -diet for now -ortho consult- Dr. Garcia -cefazolin 1g IV q8hrs for prophylaxis -heparin sc for dvt ppx- moderate to high risk for dvt- s/p orthopedic surgery and bedbound #GERD -protonix Dispo: requires inpatient treatment Full Code Visit type - Emergency Visit Emergency Visit: Yes ED Registration Date: 10/06/18 Care time: The patient presented to the Emergency Department on the above date and was hospitalized for further evaluation of their emergent condition. - New Patient This patient is new to me today: Yes Date on this admission: 10/07/18 - Critical Care Critical Care patient: No
[2018-10-07] MEDS: ASCORBIC ACID 500 MG TABLET (FP) PO SCH ×2 (10:44→21:39)
[2018-10-07] MEDS: HEPARIN NA (PORCINE) 5,000 UNITS/ML 1ML VIAL SQ SCH ×2 (10:44→21:40)
[2018-10-07] MEDS: morphine CARPU-JECT 2 MG/1 ML DISP.SYRIN IVPUSH PRN (19:36)
[2018-10-07] MEDS ORDERED: PATIENT'S OWN MEDICATION (NON-FORMULARY) (Oxycodone Hcl/Acetaminophen [Oxycodone-Acetamino PO PRN (21:26)
[2018-10-08] MEDS: CEFAZOLIN 1 GM/D5W 1 GM/50 ML BAG IVPB SCH ×2 (01:29→09:26)
[2018-10-08] MEDS ORDERED: MORPHINE SULFATE 2 MG/ML VIAL IVPUSH PRN (08:40)
[2018-10-08] MEDS ORDERED: ACETAMINOPHEN 1000 MG/100 ML VIAL (NON FORMULARY) IVPB PRN (08:41)
[2018-10-08] MEDS ORDERED: morphine CARPU-JECT 2 MG/1 ML DISP.SYRIN IVPUSH PRN ×2 (08:43→21:41)
--- NOTE | 2018-10-08 08:46 | PN ---
Physical Exam: SUBJECTIVE: Patient seen and examined at bedside. Cannot lift left leg. Pain is presently managed. OBJECTIVE: Vital Signs Period Temp Pulse Resp BP Sys/Early Pulse Ox Last 24 Hr 98.5 F-99.9 F 78-99 18-18 100-107/50-72 91-99 GENERAL: The patient is awake, alert, and fully oriented, in no acute distress. LUNGS: Breath sounds equal, clear to auscultation bilaterally HEART: Regular rate and rhythm, S1, S2 ABDOMEN: Soft, nontender, nondistended LLE: 2+ DP pulse; foot and leg are tensely swollen, no erythema, no warmth; knee is wrapped with ice packs, wound not visualized; dressings c/d/i NEUROLOGICAL: Cranial nerves II through XII grossly intact. Normal speech Laboratory Results - last 24 hr 10/07/18 10/07/18 06:00 06:00 WBC 6.7 RBC 3.30 L Hgb 11.3 L Hct 33.6 L MCV 102.0 H MCH 34.2 H MCHC 33.5 RDW 13.8 Plt Count 112 L MPV 9.0 Sodium 135 L Potassium 4.2 Chloride 102 Carbon Dioxide 23 Anion Gap 10 BUN 17 Creatinine 0.9 Est GFR (CKD-EPI)AfAm 101.36 Est GFR (CKD-EPI)NonAf 87.45 Random Glucose 77 Calcium 7.9 L Active Medications Generic Name Dose Route Start Last Admin Trade Name Freq PRN Reason Stop Dose Admin Acetaminophen 1,000 mg 10/08/18 08:41 Ofirmev Injection - IVPB Q6H PRN PAIN LEVEL 1-5 Heparin Sodium (Porcine) 5,000 unit 10/06/18 22:00 10/07/18 21:40 Heparin - SQ 5,000 unit BID FELECIA Administration Cefazolin Sodium 1 gm in 50 mls @ 100 mls/hr 10/07/18 02:00 10/08/18 01:29 Ancef 1 Gm Premixed Ivpb - IVPB 100 mls/hr Q8H-IV FELECIA Administration Lactated Ringer's 1,000 ml in 1,000 mls @ 125 mls/hr 10/08/18 08:45 Lactated Ringers Solution IV ASDIR FELECIA Morphine Sulfate 2 mg 10/08/18 08:43 Morphine Injection - IVPUSH Q4H PRN PAIN LEVEL 7 - 10 ASSESSMENT/PLAN 68 year-old male with a PMH significant for peripheral neuropathy, GERD and left knee OA s/p left ANJU TKA on 10/04/[address] Mynor Garcia. Discharged to home and en route, as he was getting out of a cab, his left knee buckled. He prevented himself from falling but the wound dehisced. Patient readmitted same day. Surgical wound dehiscence s/p left ANJU TKA on 10/04/09 --Cefazolin started --to OR today GERD --protonix Peripheral neuropathy --stable FEN Fluids: LR@ 125mL/hr Electrolytes: replete as indicated Nutrition: NPO DVT prophylaxis: was on ASA 325mg daily x 6 weeks for post-op DVT prophylaxis; hold ASA today, resume tomorrow Physical therapy Dispo: continues to require inpatient care. Full code. Visit type - Emergency Visit Emergency Visit: Yes ED Registration Date: 10/06/18 Care time: The patient presented to the Emergency Department on the above date and was hospitalized for further evaluation of their emergent condition. - New Patient This patient is new to me today: Yes Date on this admission: 10/08/18 - Critical Care Critical Care patient: No
[2018-10-08 09:01] LABS: ALBUMIN 2.7 g/dl (3.4-5.0); BILIRUBIN,TOTAL 1.4 mg/dl (0.2-1); CALCIUM 8.2 mg/dl (8.5-10); MAGNESIUM 1.9 mg/dL (1.8-2.4); POTASSIUM 4.9 mmol/L (3.5-5.1); TOT PROT 5.4 g/dl (6.4-8.2)
[2018-10-08] MEDS: LACTATED RINGERS SOLUTION 1,000 ML/1,000 ML INFUS.BAG IV SCH (09:31)
[2018-10-08 09:37] LABS: BASO % 0.4 % (0-2.0); EOS % 1.1 % (0-4.5); HEMATOCRIT 34.3 % (35.4-49); HEMOGLOBIN 11.3 GM/dL (11.7-16.9); LYMPH % 21.4 % (8-40); MCH 33.6 pg (25.7-33.7); MEAN CELL VOLUME 101.9 fl (80-96); MEAN PLT VOLUME 8.6 fl (7.5-11.1); MONO % 13.4 % (3.8-10.2); NEUT % 63.7 % (42.8-82.8); PLATELET COUNT 133 K/MM3 (134-434); RBC 3.36 M/mm3 (4.00-5.60); RDW 13.9 % (11.9-15.9); WHITE BLOOD COUNT 5.9 K/mm3 (4.0-10.0)
[2018-10-08] MEDS ORDERED: SENNOSIDES/DOCUSATE COMBO (SENNA PLUS) TABLET (UD) PO SCH (10:00)
[2018-10-08] MEDS ORDERED: ceFAZolin SODIUM 1 GM VIAL ONE ×4 (12:49→17:43)
[2018-10-08] MEDS ORDERED: VANCOMYCIN 1,000 MG VIAL (RESTRICTED TO ID ONLY) ONE ×2 (12:50→14:09)
--- NOTE | 2018-10-08 12:53 | CONSULT ---
Consult Consult Specialty:: Orthopedics - History of Present Illness Chief Complaint: Left TKA wound dehiscence History of Present Illness: 68yo male s/p L TKA 10/04/18. Pt did well postop in hospital but was noted to be noncompliant with nursing and physical therapy instructions and activity restrictions. He was found OOB ambulating in his room by the nursing staff without notifying them first as is protocol and the instructions he was given. He was also found to take unannounced trips to the bathroom without using his walker. He was instructed to use the walker at all times when ambulating to prevent falls. When questioned about this before his discharge home he stated to me that he did not feel that he needed the walker and so chooses not to use it. Though I did reinforce that the walker was necessary for balance and to prevent falls until he got used to new knee, he apparently still did not listen because right after discharge home, immediately upon arriving at home he tried to get out of a taxi without the walker and nearly fell, causing the knee to hyperflex and the wound to dehisce. He was brought back to [facility] for I&D and wound closure in the OR. - Past Medical History [facility]: Yes: Peripheral Neuropathy Gastrointestinal: Yes: GERD Musculoskeletal: Yes: Osteoarthritis - Alcohol/Substance Use Hx Alcohol Use: No - Smoking History Smoking history: Former smoker Have you smoked in the past 12 months: No Aproximately how many cigarettes per day: 20 If you are a former smoker, when did you quit?: 1978 Home Medications - Allergies Allergies/Adverse Reactions: Allergies Allergy/AdvReac Type Severity Reaction Status Date / Time No Known Allergies Allergy Verified 09/24/18 11:47 - Home Medications Home Medications: Ambulatory Orders Magnesium 200 mg PO DAILY 09/24/18 [place]-3 Fatty Acids/Fish Oil [Fish Oil 1,000 mg Capsule] 1 tab PO DAILY Vitamin E 1,000 unit PO DAILY 09/24/18 Zinc 50 mg PO DAILY 09/24/18 Ascorbic Acid [Vitamin C -] 500 mg PO BID tablet 10/06/18 Aspirin [ASA -] 325 mg PO DAILY@0800 tablet 10/06/18 Celecoxib [CeleBREX -] 200 mg PO BID #60 capsule 10/06/18 Cephalexin Monohydrate [Keflex -] 500 mg PO TID #30 capsule 10/06/18 Multivitamins [Multivit ([facility] Formulary)] 1 tab PO DAILY tab 10/06/18 Oxycodone HCl/Acetaminophen [Oxycodone-Acetaminophen 10-325] 1 tab PO Q3H PRN # 60 tablet MDD 8 10/06/18 Pantoprazole Sodium [Protonix -] 40 mg PO DAILY #40 tablet.ec 10/06/18 Sennosides/Docusate Sodium [Pericolace -] 1 tablet PO BID tablet 10/06/18 traMADol HCL [Ultram -] 50 mg PO Q4H PRN #60 tablet MDD 6 10/06/18 Physical Exam Vital Signs: Vital Signs Temperature 98.8 F 10/08/18 07:51 Pulse Rate 78 10/08/18 07:51 Respiratory Rate 18 10/08/18 07:51 Blood Pressure 103/72 10/08/18 07:51 O2 Sat by Pulse Oximetry (%) 99 10/08/18 07:51 Labs: CBC, BMP 10/08/18 07:14 10/08/18 07:14 Assessment/Plan Pt seen and examined. LLE: skin complete dehiscence, deep capsule and tendons appear to be intact grossly XR L knee - TKA in place, no obvious fracture A/P 68 yo male s/p L TKA with postop wound dehiscence I had an extensive discussion with the patient about why it is important to follow the rules and precautions that he is given postop which were put in place specifically to prevent falls. Now because he nearly fell and dehisced his wound, he is at risk for infection - possibly requiring multiple further surgeries. If the skin edges are too torn/frayed to close securely then we will need to keep him in a knee brace in extension for a prolonged period of time until the skin heals - and this will lead to arthrofibrosis which may be permanent. If the skin is unable to be closed then he will need a VAC and/or other soft tissue flap/graft procedures which will add time and also hinder PT leading to stiffness. The plan for now is I&D of the knee and irrigation with 9L of antibiotic saline. Since it has only been 4 days since the surgery and the capsule has not healed, the best course of action would be to cut the sutures, wash inside, and do a poly exchange. I will likely put on an incisional VAC and place him in a knee immobilizer until the skin has fully healed. He will start PT at that time. Because of immobilization he will need stronger anticoagulation than aspirin, likely Eliquis. After our discussion Mr. Rodriguez stated that he understood the importance of doing what he is told postop and promised to be a compliant patient from this point on.
[2018-10-08] MEDS ORDERED: MIDAZOLAM HCL 2 MG/2 ML SINGLE DOSE VIAL ONE ×3 (13:28→15:21)
[2018-10-08] MEDS ORDERED: DEXAMETHASONE SOD PHOSPHATE 4 MG/1 ML VIAL ONE (13:44)
[2018-10-08] MEDS ORDERED: ONDANSETRON 4 MG/2 ML VIAL ONE (13:44)
[2018-10-08] MEDS ORDERED: oxyCODONE HCL 5 MG TABLET PO PRN (14:15)
[2018-10-08] MEDS ORDERED: ONDANSETRON 4 MG/2 ML VIAL IVPUSH PRN ×2 (14:15→16:10)
--- NOTE | 2018-10-08 16:07 | OP ---
Operative Note - Note: Operative Date: 10/08/18 Pre-Operative Diagnosis: left TKA wound dehiscence Operation: I&D left knee, poly exchange, VAC placement Post-Operative Diagnosis: Same as Pre-op Surgeon: Mynor Garcia Consulting Psychologist: Crista Hernandez Anesthesia: Spinal Estimated Blood Loss (mls): 150
[2018-10-08] MEDS ORDERED: ACETAMINOPHEN 1000 MG/100 ML VIAL (NON FORMULARY) IVPB ONE (16:09)
[2018-10-08] MEDS ORDERED: MAGNESIUM HYDROX 2400MG/30ML ORAL SUSPENSION 30 ML CUP PO PRN (16:10)
[2018-10-08] MEDS ORDERED: MAG HYDROX/AL HYDROX/SIMETH 30 ML UNIT-DOSE CUP PO PRN (16:10)
[2018-10-08] MEDS ORDERED: LACTATED RINGERS SOLUTION 1,000 ML IV SCH (16:15)
[2018-10-08] MEDS ORDERED: traMADol HCL 50 MG TABLET ONE (16:18)
[2018-10-08] MEDS ORDERED: KETOROLAC TROMETHAMINE 30 MG/1 ML VIAL ONE (16:18)
[2018-10-08] MEDS ORDERED: ACETAMINOPHEN INJECTION 100 ML IVPB ONE (16:18)
[2018-10-08] MEDS ORDERED: ceFAZolin 2 GRAM PREMIX BAG IVPB ONE (18:00)
[2018-10-08] MEDS: traMADol HCL 50 MG TABLET PO SCH ×3 (18:00→21:31)
[2018-10-08] MEDS ORDERED: MORPHINE SULFATE 2 MG/ML VIAL IVPB ONE (18:30)
[2018-10-08] MEDS: CEFAZOLIN 2 GM/D5W 2 GM/50 ML ML IVPB SCH (19:14)
[2018-10-08] MEDS: KETOROLAC TROMETHAMINE 30 MG/1 ML VIAL IVPUSH SCH ×2 (19:14→21:36)
[2018-10-08] MEDS: ASCORBIC ACID 500 MG TABLET (FP) PO SCH (21:31)
[2018-10-08] MEDS: GABAPENTIN 300 MG CAPSULE (FP) PO SCH (21:31)
[2018-10-08] MEDS: SENNOSIDES/DOCUSATE COMBO (SENNA PLUS) TABLET (UD) PO SCH (21:33)
[2018-10-08] MEDS: VANCOMYCIN 1 GM in D5W (PRE-DOCKED) 1,000 MG/250 ML IVPB SCH (21:33)
[2018-10-08] MEDS: oxyCODONE HCL 10 MG SUSTAINED ACTING TABLET PO SCH (22:21)
[2018-10-09] MEDS: VANCOMYCIN 1 GM in D5W (PRE-DOCKED) 1,000 MG/250 ML IVPB SCH ×3 (01:01→20:23)
[2018-10-09] MEDS: CEFAZOLIN 2 GM/D5W 2 GM/50 ML ML IVPB SCH ×3 (01:57→17:01)
[2018-10-09] MEDS: KETOROLAC TROMETHAMINE 30 MG/1 ML VIAL IVPUSH SCH ×2 (04:18→09:18)
[2018-10-09] MEDS: traMADol HCL 50 MG TABLET PO SCH ×4 (04:19→23:42)
[2018-10-09] MEDS ORDERED: ASPIRIN 325 MG TABLET PO SCH (08:00)
[2018-10-09] MEDS: LACTATED RINGERS SOLUTION 1,000 ML/1,000 ML INFUS.BAG IV SCH (08:49)
[2018-10-09 09:02] LABS: CALCIUM 7.9 mg/dl (8.5-10); MAGNESIUM 2.1 mg/dL (1.8-2.4)
[2018-10-09] MEDS: MULTIVITAMINS (DAILY MVI) TABLET (FP) PO SCH (09:14)
[2018-10-09] MEDS: CELECOXIB 200 MG CAPSULE PO SCH ×2 (09:14→21:04)
[2018-10-09] MEDS: PANTOPRAZOLE 40 MG TABLET (FP) PO SCH (09:14)
[2018-10-09] MEDS: GABAPENTIN 300 MG CAPSULE (FP) PO SCH ×2 (09:14→21:04)
[2018-10-09] MEDS: SENNOSIDES/DOCUSATE COMBO (SENNA PLUS) TABLET (UD) PO SCH ×2 (09:14→21:05)
[2018-10-09] MEDS: oxyCODONE HCL 10 MG SUSTAINED ACTING TABLET PO SCH ×2 (09:15→21:05)
[2018-10-09] MEDS: APIXABAN 2.5 MG TABLET PO SCH ×2 (09:16→21:04)
[2018-10-09] MEDS: ASCORBIC ACID 500 MG TABLET (FP) PO SCH ×2 (09:17→21:04)
--- NOTE | 2018-10-09 10:05 | PN ---
Physical Exam: Dr. Garcia advised Nurse Heavy Coil Winder Aylin that he will take this patient onto his service. The hospitalist service will sign off at this time. Thank you for the opportunity to care for this patient. Visit type - Emergency Visit Emergency Visit: Yes ED Registration Date: 10/06/18 Care time: The patient presented to the Emergency Department on the above date and was hospitalized for further evaluation of their emergent condition. - New Patient This patient is new to me today: No - Critical Care Critical Care patient: No
[2018-10-09 10:32] LABS: HEMOGLOBIN 11.1 GM/dL (11.7-16.9); MEAN PLT VOLUME 8.6 fl (7.5-11.1); WHITE BLOOD COUNT 6.9 K/mm3 (4.0-10.0)
[2018-10-09 10:35] LABS: MCH 34.2 pg (25.7-33.7); MCHC 33.6 g/dl (32.0-35.9); MEAN CELL VOLUME 101.7 fl (80-96); PLATELET COUNT 169 K/MM3 (134-434); RBC 3.25 M/mm3 (4.00-5.60); RDW 13.7 % (11.9-15.9)
--- NOTE | 2018-10-10 | PN ---
Progress Note (short form) - Note Progress Note: Pt seen and examined. Doing well. Ambulated with PT. Afebrile Selected Entries 10/08/18 10/09/18 10/09/18 07:51 20:00 20:21 Temperature 98.8 F 97.8 F Pulse Rate 78 78 Respiratory 18 20 20 Rate Blood Pressure 103/72 93/64 O2 Sat by Pulse 99 98 Oximetry (%) Oxygen Delivery Nasal Cannula Method 10/10/18 00:00 Temperature 97.8 F Pulse Rate 82 Respiratory 20 Rate Blood Pressure 96/42 L O2 Sat by Pulse Oximetry (%) Oxygen Delivery Method Laboratory Tests 10/08/18 10/08/18 10/09/18 07:14 07:14 07:50 WBC 5.9 6.9 Hgb 11.3 L 11.1 L Hct 34.3 L 33.0 L Plt Count 133 L 169 D Sodium 132 L Potassium 4.9 Chloride 99 Carbon Dioxide 25 Anion Gap 8 BUN 13 Creatinine 1.0 Est GFR (CKD-EPI)AfAm 89.23 Est GFR (CKD-EPI)NonAf 76.99 Random Glucose 112 H Calcium 8.2 L Magnesium 1.9 Total Bilirubin 1.4 H AST 24 ALT 13 Alkaline Phosphatase 62 D Total Protein 5.4 L Albumin 2.7 L 10/09/18 07:50 WBC Hgb Hct Plt Count Sodium 132 L Potassium 5.0 Chloride 99 Carbon Dioxide 24 Anion Gap 9 BUN 18 Creatinine 1.0 Est GFR (CKD-EPI)AfAm 89.23 Est GFR (CKD-EPI)NonAf 76.99 Random Glucose 118 H Calcium 7.9 L Magnesium 2.1 Total Bilirubin AST ALT Alkaline Phosphatase Total Protein Albumin Gen: NAD LLE: c/d/i, VAC in place, scant drainage in reservoir A/P POD#1 s/p I&D of TKA wound dehiscence Plan for discharge Continue IV abx - ancef + vanco Continue incisional VAC until - will d/c and place Aquacel before discharge Knee immobilizer in extension at all times until skin heals WBAT with brace on
[2018-10-10] MEDS: CEFAZOLIN 2 GM/D5W 2 GM/50 ML ML IVPB SCH ×3 (01:46→17:01)
[2018-10-10] MEDS: traMADol HCL 50 MG TABLET PO SCH ×4 (04:57→21:24)
[2018-10-10] MEDS: VANCOMYCIN 1 GM in D5W (PRE-DOCKED) 1,000 MG/250 ML IVPB SCH ×2 (07:46→20:21)
[2018-10-10 08:30] LABS: HEMATOCRIT 29.9 % (35.4-49); HEMOGLOBIN 9.6 GM/dl (11.7-16.9); MCH 32.7 pg (25.7-33.7); MEAN CELL VOLUME 102.4 fl (80-96); MEAN PLT VOLUME 8.2 fl (7.5-11.1); PLATELET COUNT 165 K/MM3 (134-434); RBC 2.92 M/mm3 (4.00-5.60); WHITE BLOOD COUNT 4.8 K/mm3 (4.0-10.8)
[2018-10-10 08:33] LABS: CALCIUM 7.5 mg/dl (8.5-10); CREATININE 0.9 mg/dl (0.55-1.3); POTASSIUM 4.3 mmol/L (3.5-5.1)
[2018-10-10] MEDS: GABAPENTIN 300 MG CAPSULE (FP) PO SCH ×2 (10:06→21:23)
[2018-10-10] MEDS: ASCORBIC ACID 500 MG TABLET (FP) PO SCH ×2 (10:06→21:24)
[2018-10-10] MEDS: CELECOXIB 200 MG CAPSULE PO SCH ×2 (10:07→21:22)
[2018-10-10] MEDS: APIXABAN 2.5 MG TABLET PO SCH ×2 (10:07→21:23)
[2018-10-10] MEDS: PANTOPRAZOLE 40 MG TABLET (FP) PO SCH (10:08)
[2018-10-10] MEDS: MULTIVITAMINS (DAILY MVI) TABLET (FP) PO SCH (10:08)
[2018-10-10] MEDS: oxyCODONE HCL 10 MG SUSTAINED ACTING TABLET PO SCH ×2 (10:09→21:23)
[2018-10-10] MEDS: SENNOSIDES/DOCUSATE COMBO (SENNA PLUS) TABLET (UD) PO SCH ×2 (10:13→21:24)
[2018-10-10] MEDS: LACTATED RINGERS SOLUTION 1,000 ML/1,000 ML INFUS.BAG IV SCH (12:51)
--- NOTE | 2018-10-10 13:58 | PATH ---
Surgical Pathology Report Patient Name: CHELSEA VALLECILLO Med. Rec. #: [id number] /Age/Gender: 1950 (Age: 68) / M Account: [id number] Location: [facility] MED-SURG Taken: 10/08/2018 Received: 10/08/2018 Reported: 10/10/2018 Physicians: YONAS Orozco Specimen(s) Received LEFT KNEE HARDWARE Clinical History Dehiscence wound left knee Final Diagnosis HARDWARE, KNEE, LEFT, REMOVAL: SURGICAL HARDWARE. MACROSCOPIC DIAGNOSIS. Electronically Signed Jinny Morrison M.D. Gross Description Received fresh labeled "left knee hardware," is a 7.3 x 4.7 x 3.0 cm white plastic device, consistent with a knee explant, as well as a 3.9 cm in length gonzales metallic screw. No soft tissue is present. No sections are submitted, gross only. /10/09/2018 [place]10/09/2018
[2018-10-11] MEDS: CEFAZOLIN 2 GM/D5W 2 GM/50 ML ML IVPB SCH ×2 (01:42→10:00)
[2018-10-11] MEDS: traMADol HCL 50 MG TABLET PO SCH (05:39)
[2018-10-11] MEDS: VANCOMYCIN 1 GM in D5W (PRE-DOCKED) 1,000 MG/250 ML IVPB SCH (07:44)
[2018-10-11] MEDS: MULTIVITAMINS (DAILY MVI) TABLET (FP) PO SCH (09:40)
[2018-10-11] MEDS: SENNOSIDES/DOCUSATE COMBO (SENNA PLUS) TABLET (UD) PO SCH (09:40)
[2018-10-11] MEDS: GABAPENTIN 300 MG CAPSULE (FP) PO SCH (09:41)
[2018-10-11] MEDS: APIXABAN 2.5 MG TABLET PO SCH (09:41)
[2018-10-11] MEDS: PANTOPRAZOLE 40 MG TABLET (FP) PO SCH (09:41)
[2018-10-11] MEDS: CELECOXIB 200 MG CAPSULE PO SCH (09:42)
[2018-10-11] MEDS: oxyCODONE HCL 10 MG SUSTAINED ACTING TABLET PO SCH (09:42)
[2018-10-11] MEDS: ASCORBIC ACID 500 MG TABLET (FP) PO SCH (09:42)
[2018-10-11 11:53] VITALS: BP 107/56; PULSE 80; TEMP 97.6
--- NOTE | 2018-10-11 12:59 | PN ---
Progress Note (short form) - Note Progress Note: Pt seen and examined. Doing well. Afebrile Selected Entries 10/11/18 10:00 Temperature 97.6 F Pulse Rate 80 Respiratory 18 Rate Blood Pressure 107/56 L O2 Sat by Pulse 95 Oximetry (%) Oxygen Delivery Room Air Method Laboratory Tests 10/10/18 10/10/18 07:12 07:12 WBC 4.8 Hgb 9.6 L Hct 29.9 L D Plt Count 165 Sodium 133 L Potassium 4.3 Chloride 102 Carbon Dioxide 25 Anion Gap 6 L BUN 18 Creatinine 0.9 Est GFR (CKD-EPI)AfAm 101.36 Est GFR (CKD-EPI)NonAf 87.45 Random Glucose 83 Calcium 7.5 L LLE: c/d/i, VAC in place, scant drainage in reservoir A/P s/p I&D of TKA wound dehiscence Discharge home today VAC removed and Aquacel placed Knee immobilizer in extension at all times until skin heals WBAT with brace on
--- NOTE | 2018-10-11 13:20 | DS ---
Physical Examination Vital Signs: Vital Signs Temperature 97.6 F 10/11/18 10:00 Pulse Rate 80 10/11/18 10:00 Respiratory Rate 18 10/11/18 10:00 Blood Pressure 107/56 L 10/11/18 10:00 O2 Sat by Pulse Oximetry (%) 95 10/11/18 10:00 Labs: CBC, BMP 10/10/18 07:12 10/10/18 07:12 Discharge Summary Reason For Visit: DEHISCENCE OF WOUND Current Active Problems Wound dehiscence (Acute) Procedures: Principal: I&D L knee, wound closure, VAC placement Hospital Course: Admitted through emergency room after fall at home after knee replacement. Pt suffered wound dehiscence and was taken back to the OR for I&D and wound closure. Procedure performed without complications. Pt received postoperative antibiotic prophylaxis and DVT ppx. Ambulated with physical therapy. Stable for discharge home with outpatient followup. Condition: Stable - Instructions Diet, Activity, Other Instructions: Dr. Garcia - Knee Replacement Instructions Keep the Aquacel dressing on until removed by Dr. Garcia in 10-14 days - it is antibacterial and waterproof and you can shower with it on. Call the office for a follow-up appointment with Dr. Garcia in 10-14 days. Take ELIQUIS twice daily for 32 days to prevent blood clots in your legs. Take one Pantoprazole 40mg daily for 6 weeks to protect against heartburn and ulcers. Take Cephalexin (antibiotic) 3x/day for 14 days to help prevent infection. Take Bactrim DS (another antibiotic) 2x/day for 14 days to help prevent infection. Take a multivitamin, stool softener, and extra Vitamin C supplement daily. For pain: *Mild pain (1-3/10): Take 1 Tramadol tablet every 4 hours as needed. Moderate/Severe pain (4-10/10): Take 1 Tramadol tablet first and if that is not enough then take 1 Oxycodone/ Acetaminophen tablet every 3-6 hours as needed. Activity: You can put as much weight on the operative leg as you want with the knee brace on. KEEP THE KNEE BRACE ON AT ALL TIMES UNTIL THE SKIN IS HEALED. Right after you get home, there will be a physical therapist coming to your house to help you walk around safely. After your follow-up appointment, you will be sent for more intensive outpatient physical therapy which will include machines and equipment that the home therapist cannot bring to your house. Always use a walker for balance and to prevent falls. Expect to see swelling/bruising from the operative site all the way down to your toes. Wear the compression stocking on the operative side during the day to minimize how much swelling there is in your foot/ankle. Don't wear the stocking at night. You don't have to wear a stocking on the other side. Disposition: [facility]NS/HOME HEALTH CARE - Home Medications Comprehensive Discharge Medication List: Ambulatory Orders Magnesium 200 mg PO DAILY 09/24/18 Towner-3 Fatty Acids/Fish Oil [Fish Oil 1,000 mg Capsule] 1 tab PO DAILY Vitamin E 1,000 unit PO DAILY 09/24/18 Zinc 50 mg PO DAILY 09/24/18 Ascorbic Acid [Vitamin C -] 500 mg PO BID tablet 10/06/18 Cephalexin Monohydrate [Keflex -] 500 mg PO TID #30 capsule 10/06/18 Multivitamins [Multivit ([facility] Formulary)] 1 tab PO DAILY tab 10/06/18 Oxycodone HCl/Acetaminophen [Oxycodone-Acetaminophen 10-325] 1 tab PO Q3H PRN # 60 tablet MDD 8 10/06/18 Pantoprazole Sodium [Protonix -] 40 mg PO DAILY #40 tablet.ec 10/06/18 Sennosides/Docusate Sodium [Pericolace -] 1 tablet PO BID tablet 10/06/18 traMADol HCL [Ultram -] 50 mg PO Q4H PRN #60 tablet MDD 6 10/06/18 Apixaban [Eliquis -] 2.5 mg PO BID #64 tablet 10/11/18 Ascorbic Acid [Vitamin C -] 500 mg PO BID tablet 10/11/18 Multivitamins [Multivit ([facility] Formulary)] 1 tab PO DAILY tab 10/11/18 Sennosides/Docusate Sodium [Pericolace -] 2 tablet PO BID tablet 10/11/18 Sulfamethoxazole/Trimethoprim [Bactrim Ds Tablet] 1 each PO BID #28 tablet 10/11
--- NOTE | 2018-11-13 06:25 | OP ---
DATE OF OPERATION: 10/08/2018 PREOPERATIVE DIAGNOSIS: Left total knee replacement wound dehiscence. POSTOPERATIVE DIAGNOSIS: Left total knee replacement wound dehiscence. PROCEDURE: Left total knee replacement, irrigation and debridement, polyethylene exchange, arthrotomy and wound closure, and incisional vacuum-assisted closure placement. SURGEON: Demi Estrada MD MEDICAL DATA ANALYST: WALE Wong ANESTHESIA: Spinal plus sedation. ESTIMATED BLOOD LOSS: 150 mL. COMPLICATIONS: None. DISPOSITION: The patient was transferred to the PACU in stable condition. IMPLANTS USED: Wade Triathlon size 6/13 mm total stabilized polyethylene component. INDICATIONS: This is a 68-year-old male who underwent a left total knee replacement on October 04, 2018, uneventfully and did well postoperatively, was ambulatory, and was discharged home on October 06, 2018. While in the hospital, the patient was noted to be noncompliant with nursing and physical therapy instructions and activity restrictions and was found on several occasions ambulating in his room without assistance and without any assistive devices such as a walker or cane. The patient had been instructed to use a walker at all times and to call for assistance before ambulating to prevent falls. He insisted that he did not feel that he needed the walker, but again it was reinforced that this was necessary for balance and to prevent falls until he got used to the new knee. The patient agreed to use assistive devices and follow instructions and was discharged home on October 06, 2 days postoperatively. When he arrived home in the taxi, he exited the vehicle by himself without a walker and lost his balance and nearly fell causing his knee to hyperflex with weight on it, which caused the wound to completely dehisce. The patient was brought back to the hospital and admitted for irrigation and debridement in the operating room. He was seen and examined by Dr. Estrada, and the risks, benefits, and alternatives of procedure were explained to the patient in great detail, and he elected to proceed with the surgery. DESCRIPTION OF PROCEDURE: On the day of surgery, the patient was taken to the OR and placed on the OR table. Spinal anesthesia was administered by the anesthesiologist. The patient was then positioned supine on the table and all bony prominences were padded. A tourniquet was placed on the proximal thigh. The left lower extremity was then prepped and draped in the usual sterile fashion and intravenous antibiotics were given for infection prophylaxis. A surgical time-out was then performed with the team, and the patients identity, procedure, side, and the availability of the antibiotics was confirmed. With the patient under anesthesia, the wound was explored and found to be full-thickness dehiscence with both the skin as well as part of the arthrotomy. The extensor mechanism was found to be intact and had no evidence of disruption both proximally or distally. The entire incision was then opened and all sutures from the previous closure were removed. The same was done for the arthrotomy. The knee was then flexed and the polyethylene insert was removed to allow us to clean behind it and exchange it for a sterile implant. The wound was then thoroughly irrigated with 6 L of normal saline solution via pulsatile lavage. This irrigant contained 1 g of Ancef per 1 L of normal saline. Following this, a 3-minute dilute Betadine lavage was performed following the [place] [facility] protocol. Betadine-soaked sponges were used to scrub the implant surfaces of any biological debris after the soak was finished. The wound was again then thoroughly irrigated with normal saline via pulsatile lavage. This saline also contained 1 g of Ancef per 1 L of normal saline with a total of 3 additional liters. Once the irrigation was finished, a new polyethylene component was placed. A vancomycin powder was then placed in the wound around the implants for infection prophylaxis. No. 1 Vicryl and No. 0 V-Loc 180 barbed sutures were used to close the arthrotomy. No. 1 Vicryl and 2-0 V-Loc 90 sutures were used in the subcutaneous tissues. The skin was closed with 3-0 V-Loc 90 suture in a running subcuticular fashion. Once this was completed, an incisional VAC dressing was placed over the incision. The surrounding tissue was draped out using clear adhesive dressing to avoid maceration of the skin. This was then connected to a VAC machine and found to have adequate suction. A knee immobilizer was placed. The patient was then awakened and taken to the PACU in stable condition. The postoperative plan for this patient will be initial incisional VAC placement with conversion then to a sterile Aquacel dressing. The patient will stay in a knee immobilizer until the skin and soft tissues are further healed to minimize tension on the incision and arthrotomy closure. Once this has sufficiently healed, the knee immobilizer will be discontinued and he will resume flexion of the knee and full physical therapy. It was again stressed to the patient that he must follow all instructions from nursing staff and physical therapy staff and must use assistive devices at all times. It was also stressed to the patient that because the knee wound and arthrotomy had opened outside in the environment and the implants had been exposed to the outside environment prior to his return to the hospital, there is a chance that he will develop a periprosthetic joint infection even though we did perform this irrigation and debridement and place him on antibiotics. The patient understands that this is a possibility that may occur immediately postoperatively or perhaps several weeks later to have wounds healed. He will be placed on intravenous antibiotics while he is in the hospital and then discharged with oral antibiotics with close outpatient followup. DEMI ESTRADA M.D. [id number]
== END 2018-10-11 15:03 | disposition home health service (06) | DRG 909 ==
LOC: FER 17:47 → FM/S 19:20
PROVIDERS: ADMIT Student in an Organized Health Care Education/Training Program; ATTEND Student in an Organized Health Care Education/Training Program
PROC: 0SRD0JZ Replacement of Left Knee Joint with Synthetic Substitute, Open Approach (ICD-10-PCS; 2018-10-08)
PROC: 0J9P0ZZ Drainage of Left Lower Leg Subcutaneous Tissue and Fascia, Open Approach (ICD-10-PCS; 2018-10-08)
PROC: 3E10X8Z Irrigation of Skin and Mucous Membranes using Irrigating Substance (ICD-10-PCS; 2018-10-08)
PROC: 2W1MX6Z Compression of Left Lower Extremity using Pressure Dressing (ICD-10-PCS; 2018-10-08)
PROC: 0SPD0JZ Removal of Synthetic Substitute from Left Knee Joint, Open Approach (ICD-10-PCS; principal; 2018-10-08 14:09)
DX: T81.32XA Disruption of internal operation (surgical) wound, not elsewhere classified, initial encounter (principal); Y83.8 Other surgical procedures as the cause of abnormal reaction of the patient, or of later complication, without mention of misadventure at the time of the procedure; K21.9 Gastro-esophageal reflux disease without esophagitis; E78.00 Pure hypercholesterolemia, unspecified; G62.9 Polyneuropathy, unspecified; W18.39XA Other fall on same level, initial encounter; Y92.098 Other place in other non-institutional residence as the place of occurrence of the external cause; Z96.651 Presence of right artificial knee joint; Z85.46 Personal history of malignant neoplasm of prostate; Z87.11 Personal history of peptic ulcer disease
CPT/HCPCS: 36415; 73560-TC-LT-FY; 80048; 80053; 83735; 85025; 85027; 85610; 85730; 86850; 86900; 86901; 88300-TC; 93971-TC; 94760; 97116-GP; 97162-GP; 99283-25; J0131; J1644; J7030

== ENCOUNTER 2018-12-27 09:25 | Day surgery (SDC) | payer OTHER ==
[2018-12-21 12:03] VITALS: BMI 28.2
--- NOTE | 2018-12-27 07:52 | HP ---
Admitting History and Physical - Admission Chief Complaint: left total inee arthrofibrosis History of Present Illness: 68 year old male presents in regard to his left knee. Status post a left total knee arthroplasty 10/04/2018. Following his surgery his would dehisced as a result of a fall. He was brought back to the operating room on 10/08/2018 for and I&D with polyethylene swap and wound re-closure. As a result, he was placed in a knee immobilizer to prevent further wound complications. Since then, he has been attending physiotherapy - but has limited ROM of his knee. As a result patient wished to undergo a manipulation under anesthesia of a left total knee arthroplasty. 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: Yes: Peripheral Neuropathy Gastrointestinal: Yes: GERD Musculoskeletal: Yes: Osteoarthritis - Past Surgical History Additional Past Surgical History: Previous right total knee replacement S/p left total knee replacement 10/04/2018 s/p I&D with polyethylene swap ans wound re-closure 10/08/2018 - Smoking History Smoking history: Former smoker Have you smoked in the past 12 months: No Aproximately how many cigarettes per day: 20 If you are a former smoker, when did you quit?: 1978 - Alcohol/Substance Use Hx Alcohol Use: No Home Medications - Allergies Allergies/Adverse Reactions: Allergies Allergy/AdvReac Type Severity Reaction Status Date / Time No Known Allergies Allergy Verified 12/21/18 11:52 - Home Medications Home Medications: Ambulatory Orders Pantoprazole Sodium [Protonix -] 40 mg PO DAILY #40 tablet.ec 10/06/18 Multivitamins [Multivit ([facility] Formulary)] 1 tab PO DAILY tab 10/11/18 Review of Systems - Review of Systems Musculoskeletal: reports: Decreased ROM (left knee) Physical Examination Constitutional: Yes: Well Nourished, No Distress Eyes: Yes: Conjunctiva Clear HENT: Yes: Atraumatic Neck: Yes: Supple Cardiovascular: Yes: Regular Rate and Rhythm Respiratory: Yes: Regular Gastrointestinal: Yes: Soft ...Rectal Exam: Yes: Deferred Musculoskeletal: Yes: Other (limited ROM left knee) Assessment/Plan 68 year old male presents in regard to his left knee. Status post a left total knee arthroplasty 10/04/2018. Following his surgery his would dehisced as a result of a fall. He was brought back to the operating room on 10/08/2018 for and I&D with polyethylene swap and wound re-closure. As a result, he was placed in a knee immobilizer to prevent further wound complications. Since then, he has been attending physiotherapy - but has limited ROM of his knee. As a result patient wished to undergo a manipulation under anesthesia of a left total knee arthroplasty. Pros, cons, risks, benefits and alternatives of a left knee manipulation under anesthesia was discussed with the patient at length. Patient confirms his understanding and consents to proceed with a left knee manipulation under anesthesia.
[2018-12-27] MEDS ORDERED: KETOROLAC TROMETHAMINE 30 MG/1 ML VIAL ONE (11:51)
[2018-12-27] MEDS ORDERED: BUPIVACAINE HCL/PF 2.5 MG/ML - 30 ML VIAL IJ ONE (11:51)
[2018-12-27] MEDS ORDERED: BUPIVACAINE HCL/PF 0.25% (2.5MG/ML) 10 ML VIAL IJ ONE (12:16)
[2018-12-27] MEDS ORDERED: KETOROLAC TROMETHAMINE 30 MG/1 ML VIAL IM ONE (12:16)
[2018-12-27] MEDS ORDERED: ONDANSETRON 4 MG/2 ML VIAL IVPUSH PRN (12:26)
[2018-12-27] MEDS ORDERED: LACTATED RINGERS SOLUTION 1,000 ML IV SCH (12:30)
[2018-12-27] MEDS ORDERED: ONDANSETRON 4 MG/2 ML VIAL ONE (12:36)
[2018-12-27] MEDS ORDERED: ACETAMINOPHEN 1000 MG/100 ML VIAL (NON FORMULARY) IVPB ONE (13:01)
[2018-12-27] MEDS ORDERED: oxyCODONE HCL 5 MG TABLET PO ONE (13:02)
[2018-12-27] MEDS ORDERED: oxyCODONE HCL 10 MG SUSTAINED ACTING TABLET PO ONE (13:02)
[2018-12-27] MEDS ORDERED: ACETAMINOPHEN INJECTION 100 ML IVPB ONE (13:03)
[2018-12-27] MEDS ORDERED: CELECOXIB 200 MG CAPSULE PO ONE (13:16)
--- NOTE | 2018-12-27 13:16 | OP ---
Operative Note - Note: Operative Date: 12/27/18 Pre-Operative Diagnosis: left TKA arthrofibrosis Operation: left knee SIENA + toradol/marcaine injection Findings: see dictation Post-Operative Diagnosis: Same as Pre-op Surgeon: Mynor Garcia [employer] Food Server: Crista Hernandez Anesthesia: Spinal Estimated Blood Loss (mls): 0
[2018-12-27] MEDS ORDERED: CELECOXIB 200 MG CAPSULE ONE ×2 (13:26→13:29)
[2018-12-27 14:10] VITALS: PULSE 72; TEMP 97.5
[2018-12-27] MEDS ORDERED: oxyCODONE HCL 5 MG TABLET ONE (14:13)
[2018-12-27] MEDS ORDERED: oxyCODONE HCL 10 MG SUSTAINED ACTING TABLET ONE (14:13)
--- NOTE | 2018-12-27 14:35 | OP ---
DATE OF OPERATION: 12/27/2018 PREOPERATIVE DIAGNOSIS: Left total knee replacement arthrofibrosis. POSTOPERATIVE DIAGNOSIS: Left total knee replacement arthrofibrosis. PROCEDURE: Left knee manipulation under anesthesia. ATTENDING: Demi Estrada MD PRACTICE CLINICIAN: WALE Wong ANESTHESIA: Conscious sedation. ESTIMATED BLOOD LOSS: 0 mL. COMPLICATIONS: None. SPECIMENS: None. DISPOSITION: The patient was awakened and discharged home. INDICATIONS: This is a 68-year-old male with a history of left total knee replacement with a fall shortly after the initial surgery, resulting in dehiscence of the incision. He underwent an irrigation, debridement, and poly exchange and was placed in a knee immobilizer while the skin healed. He subsequently went on to develop arthrofibrosis which was not significantly improving with physical therapy. We discussed the manipulation under anesthesia in the office. The risks, benefits, and alternatives to the procedure were explained to the patient in great detail, and he elected to proceed with the procedure. On the day of the procedure, the patient was taken to the PACU and placed under conscious sedation. While under anesthesia, the range of motion of the left knee was measured with a goniometer, and it was found to be 0 degrees of extension to 30 degrees of flexion. Past 30 degrees, there was a hard, firm endpoint. With the patient under deep sedation, the knee was gently manipulated, being careful not to put too much torque on the femur and tibia to prevent fracture. Audible sounds of crepitus were heard as scar tissue was disrupted inside the knee, and the range of motion improved greatly. His final range of motion at this time the end of the manipulation was 0 degrees of extension to approximately 90 degrees of flexion. Past 90 degrees, there was very significant resistance, and the concern was that further pressure on the leg would lead to fracture. Once manipulation was completed, the left knee was injected infra-articularly. After sterile skin preparation, the left knee was injected with Toradol and bupivacaine for sustained post-procedure pain relief. The patient was then awakened and discharged home. DEMI ESTRADA M.D. [id number]
[2018-12-27 16:23] VITALS: BP 108/68
== END 2018-12-27 14:30 | disposition home or self-care (01) ==
LOC: FASU 09:25
PROVIDERS: ATTEND Student in an Organized Health Care Education/Training Program
PROC: 0SNDXZZ Release Left Knee Joint, External Approach (ICD-10-PCS; principal; 2018-12-27 12:11)
DX: M24.662 Ankylosis, left knee (principal)
CPT/HCPCS: 94760; J0131